=== PATIENT | male | born 1990 | race Two or more races ===

== ENCOUNTER 2022-12-31 12:33 | Emergency (ER) | payer MEDICAID, OTHER ==
[~2022-12-31] VITALS: Ht 170.2 cm; Wt 62.4 kg
[2022-12-31 12:33] VITALS: BP 117/53; PULSE 80; RESP 16; TEMP 98; O2SAT 99
[2022-12-31] MEDS ORDERED: CEPH500C PO (15:01)
[2022-12-31] MEDS ORDERED: NAPR-746 PO (15:01)
== END 2022-12-31 15:02 | disposition home or self-care (01) ==
LOC: ER 12:33
DX: S61.210A Laceration without foreign body of right index finger without damage to nail, initial encounter (principal); W26.8XXA Contact with other sharp object(s), not elsewhere classified, initial encounter; Y93.89 Activity, other specified; Y92.39 Other specified sports and athletic area as the place of occurrence of the external cause; Y99.8 Other external cause status
CPT/HCPCS: 12001